=== PATIENT | male | born 1925 | race Caucasian/White ===

== ENCOUNTER 2016-09-17 03:58 | Inpatient (IN) | payer OTHER, MEDICARE ==
[~2016-09-17] VITALS: Ht 172.7 cm; Wt 73.6 kg
[2016-09-17 04:34] LABS: EOSINOPHIL (%) 1.2 % (0-5); EOSINOPHIL COUNT 0.1 K/uL (0-0.3); HEMATOCRIT 29.4 % (38.0-50.0); IMMATURE GRANULOCYTE (%) 0.5 % (0.0-0.7); IMMATURE GRANULOCYTE COUNT 0.1 K/uL; INSTRUMENT ABS NEUTROPHIL CT 7.8 K/uL; LYMPHOCYTE COUNT 0.9 K/uL (1.0-2.8); MCH 31.6 PG (29.0-34.0); MCV 102.1 FL (86-99); MEAN PLAT.VOLUME 10.2 uM^3 (9.0-12.4); MONOCYTE (%) 5.8 % (3-12); MONOCYTE COUNT 0.6 K/uL (0-0.8); NEUTROPHIL (%) 82.4 % (45-76); NEUTROPHIL COUNT 7.8 K/uL (1.8-6.4); PLATELET COUNT 181 K/uL (156-360); RBC DIS.WIDTH-CV 17.8 % (11.8-14.6); RED BLOOD COUNT 2.88 M/uL (4.00-5.50); WHITE BLOOD COUNT 9.5 K/uL (4.1-10.2)
[2016-09-17] MEDS ORDERED: FINASTERIDE5 MG PO (04:51)
[2016-09-17] MEDS ORDERED: FOLIC ACID1 MG PO (04:52)
[2016-09-17] MEDS ORDERED: FUROSEMIDE20 MG PO (04:53)
[2016-09-17] MEDS ORDERED: VITAMIN D31000 UNI2 PO (04:54)
[2016-09-17] MEDS ORDERED: MONTELUKAST SOD10 MG PO (04:54)
[2016-09-17] MEDS ORDERED: TAMSULOSIN HCL0.4 MG PO (04:55)
[2016-09-17] MEDS ORDERED: SIMVASTATIN80 MG PO (04:55)
[2016-09-17] MEDS ORDERED: GUAIFENESIN200 M2 PO (04:57)
[2016-09-17] MEDS ORDERED: ZYRTEC5 MG PO (04:58)
[2016-09-17 04:59] LABS: CHLORIDE 104 mEq/L (99-109); POTASSIUM 4.6 mEq/L (3.7-5.4); SODIUM 145 mEq/L (136-147)
[2016-09-17 05:01] LABS: GLUCOSE 117 mg/dL (70-99)
[2016-09-17 05:03] LABS: ANION GAP 15 MEQ/L (2-14); TOTAL BILIRUBIN 0.7 mg/dL (0.0-1.0)
[2016-09-17 05:05] LABS: ALKALINE PHOSPHATASE 102 IU/L (3-129); GFR ESTIMATE (CALCULATED) 38 mL/min/
[2016-09-17 05:06] LABS: UREA NITROGEN (BUN) 44 mg/dL (9-23)
[2016-09-17 05:10] LABS: TROP-I INTERPRETATION NEGATIVE; TROPONIN-I 0.17 ng/mL (0.0-0.30)
[2016-09-17 07:27] LABS: ADD MIUA? NO; BILIRUBIN NEGATIVE; BLOOD NEGATIVE; COLOR YELLOW ((YELLOW)); GLUCOSE (STRIP) NEGATIVE; KETONES NEGATIVE; LEUKOCYTES NEGATIVE; NITRITE NEGATIVE; PROTEIN (STRIP) 30; SPECIFIC GRAVITY 1.013 (1.000-1.030); UCUL ADDED? NO; UROBILINOGEN 0.2 MG/DL (0.2-1.0)
[2016-09-17] MEDS ORDERED: COUMADIN2.5 MG PO (08:15)
[2016-09-17] MEDS ORDERED: COUMADIN5 MG PO (08:16)
[2016-09-17 08:32] LABS: BASE EXCESS 3.3 mEq/L (-3 to +3); BICARBONATE 29.4 mEq/L (22-26); CARBOXY HGB 2.1 % (0-5); COMMENTS - BLOOD GASES AC+; DEVICE NASAL CANNULA; METHEMOGLOBIN 0.7 % (0-1.5); O2 FLOW 2.5 L/MIN; PCO2 52 mm Hg (35-45); PO2 120 mm Hg (80-100); SITE RR; TOTAL RESP RATE 20 resp/min; pH 7.36 (7.35-7.45)
[2016-09-17 08:58] LABS: INTER. NORMALIZED RATIO 2.4; PROTHROMBIN TIME 26.9 SEC (10.2-12.9)
[2016-09-17 09:53] VITALS: BP 123/77
[2016-09-17 12:07] VITALS: BP 114/56
[2016-09-17 13:21] LABS: TROP-I INTERPRETATION NEGATIVE; TROPONIN-I 0.15 ng/mL (0.0-0.30)
[2016-09-17 16:29] VITALS: BP 116/88
[2016-09-17 18:28] LABS: TROP-I INTERPRETATION NEGATIVE; TROPONIN-I 0.14 ng/mL (0.0-0.30)
[2016-09-17 19:33] VITALS: BP 134/59
[2016-09-18] VITALS (7 sets, daily range): BP systolic 77–109; BP diastolic 44–63
[2016-09-18 05:44] LABS: EOSINOPHIL (%) 0 % (0-5); HEMATOCRIT 26.9 % (38.0-50.0); IMMATURE GRANULOCYTE (%) 0.3 % (0.0-0.7); INSTRUMENT ABS NEUTROPHIL CT 2.9 K/uL; LYMPHOCYTE COUNT 0.3 K/uL (1.0-2.8); MCH 31.1 PG (29.0-34.0); MCHC 30.5 G/DL (30.0-36.0); MCV 101.9 FL (86-99); MEAN PLAT.VOLUME 10.6 uM^3 (9.0-12.4); MONOCYTE (%) 1.5 % (3-12); MONOCYTE COUNT 0.1 K/uL (0-0.8); NEUTROPHIL (%) 88.8 % (45-76); NEUTROPHIL COUNT 2.9 K/uL (1.8-6.4); PLATELET COUNT 155 K/uL (156-360); RBC DIS.WIDTH-CV 18.1 % (11.8-14.6); RBC DIS.WIDTH-SD 66.4 % (39-53); RED BLOOD COUNT 2.64 M/uL (4.00-5.50); WHITE BLOOD COUNT 3.3 K/uL (4.1-10.2)
[2016-09-18 05:55] LABS: INTER. NORMALIZED RATIO 2.5; PROTHROMBIN TIME 28.3 SEC (10.2-12.9)
[2016-09-18 06:11] LABS: ANION GAP 8 MEQ/L (2-14); CHLORIDE 102 MEQ/L (99-109); GFR ESTIMATE (CALCULATED) 41 mL/min/; GLUCOSE 140 mg/dL (70-99); POTASSIUM 5.3 MEQ/L (3.7-5.4); SAMPLE HEMOLYSIS CHECK 0; SAMPLE ICTERIC CHECK 0; SAMPLE LIPEMIA CHECK 0; SODIUM 141 MEQ/L (136-147); UREA NITROGEN (BUN) 48 mg/dL (9-23)
[2016-09-18 11:14] LABS: INTERNAL CONTROL VALID? YES
[2016-09-19] VITALS (7 sets, daily range): BP systolic 91–111; BP diastolic 53–60
[2016-09-19 06:07] LABS: INTER. NORMALIZED RATIO 2.5; PROTHROMBIN TIME 28.6 SEC (10.2-12.9)
[2016-09-19 08:45] LABS: HEMATOCRIT 26.7 % (38.0-50.0); MCH 31.9 PG (29.0-34.0); MCHC 31.1 G/DL (30.0-36.0); MCV 102.7 FL (86-99); MEAN PLAT.VOLUME 11.3 uM^3 (9.0-12.4); PLATELET COUNT 163 K/uL (156-360); RBC DIS.WIDTH-CV 18.2 % (11.8-14.6); RBC DIS.WIDTH-SD 67.4 % (39-53); WHITE BLOOD COUNT 6.7 K/uL (4.1-10.2)
[2016-09-19 08:58] LABS: ANION GAP 11 MEQ/L (2-14); CHLORIDE 102 MEQ/L (99-109); GFR ESTIMATE (CALCULATED) 34 mL/min/; GLUCOSE 135 mg/dL (70-99); POTASSIUM 5.3 MEQ/L (3.7-5.4); SAMPLE HEMOLYSIS CHECK 0; SAMPLE ICTERIC CHECK 0; SAMPLE LIPEMIA CHECK 0; SODIUM 140 MEQ/L (136-147); UREA NITROGEN (BUN) 64 mg/dL (9-23)
[2016-09-19] MEDS ORDERED: SYMBICORT60 INHALAT IH (11:41)
[2016-09-19] MEDS ORDERED: DELTASONE20 M1 PO (11:42)
[2016-09-19] MEDS ORDERED: IPRATROPIUM BRO15 ML BOTH NARES (11:44)
[2016-09-19] MEDS ORDERED: PROVENTIL,2.5 MG/3 M IH (11:45)
[2016-09-19] MEDS ORDERED: IPRATR-ALBUTEROL3 ML IH (11:46)
[2016-09-20 03:52] VITALS: BP 105/56
[2016-09-20 07:07] LABS: HEMATOCRIT 27.3 % (38.0-50.0); MCH 31.2 PG (29.0-34.0); MCHC 30.4 G/DL (30.0-36.0); MCV 102.6 FL (86-99); MEAN PLAT.VOLUME 10.9 uM^3 (9.0-12.4); PLATELET COUNT 165 K/uL (156-360); RBC DIS.WIDTH-SD 67.4 % (39-53); RED BLOOD COUNT 2.66 M/uL (4.00-5.50); WHITE BLOOD COUNT 5.4 K/uL (4.1-10.2)
[2016-09-20 07:11] LABS: INTER. NORMALIZED RATIO 2.8; PROTHROMBIN TIME 31.6 SEC (10.2-12.9)
[2016-09-20 07:26] LABS: ANION GAP 6 MEQ/L (2-14); CHLORIDE 102 MEQ/L (99-109); GFR ESTIMATE (CALCULATED) 27 mL/min/; GLUCOSE 134 mg/dL (70-99); POTASSIUM 5.7 MEQ/L (3.7-5.4); SAMPLE HEMOLYSIS CHECK 0; SAMPLE ICTERIC CHECK 0; SAMPLE LIPEMIA CHECK 0; SODIUM 140 MEQ/L (136-147); UREA NITROGEN (BUN) 69 mg/dL (9-23)
[2016-09-20 07:52] VITALS: BP 112/68
[2016-09-20 11:19] VITALS: BP 117/58
[2016-09-20 16:00] VITALS: BP 91/59
[2016-09-20 18:12] LABS: ANION GAP 11 MEQ/L (2-14); CHLORIDE 103 MEQ/L (99-109); GFR ESTIMATE (CALCULATED) 30 mL/min/; GLUCOSE 104 mg/dL (70-99); POTASSIUM 5.3 MEQ/L (3.7-5.4); SAMPLE HEMOLYSIS CHECK 0; SAMPLE ICTERIC CHECK 0; SAMPLE LIPEMIA CHECK 0; SODIUM 143 MEQ/L (136-147); UREA NITROGEN (BUN) 69 mg/dL (9-23)
[2016-09-20 20:03] VITALS: BP 137/51
[2016-09-20 23:46] VITALS: BP 85/52
[2016-09-21 00:29] LABS: ADD MIUA? YES; BILIRUBIN NEGATIVE; BLOOD SMALL; COLOR YELLOW ((YELLOW)); GLUCOSE (STRIP) NEGATIVE; KETONES NEGATIVE; LEUKOCYTES TRACE; NITRITE NEGATIVE; PROTEIN (STRIP) 30; SPECIFIC GRAVITY 1.012 (1.000-1.030); UROBILINOGEN 0.2 MG/DL (0.2-1.0)
[2016-09-21 00:37] LABS: BACTERIA RARE /HPF; EPITHELIAL CELLS NONE SEEN /HPF; HYALINE CASTS 0-5 /LPF; MUCUS TRACE /LPF; RED BLOOD CELLS 0-5 /HPF (0-5); WHITE BLOOD CELLS 0-5 /HPF (0-5)
[2016-09-21 03:29] LABS: UR CREATININE CONCENTRATION 86.6 MG/DL
[2016-09-21 04:10] VITALS: BP 108/55
[2016-09-21 05:53] LABS: EOSINOPHIL (%) 0 % (0-5); HEMATOCRIT 27.1 % (38.0-50.0); IMMATURE GRANULOCYTE (%) 0.5 % (0.0-0.7); INSTRUMENT ABS NEUTROPHIL CT 5.6 K/uL; LYMPHOCYTE COUNT 0.4 K/uL (1.0-2.8); MCH 31.8 PG (29.0-34.0); MCV 102.7 FL (86-99); MONOCYTE (%) 5.7 % (3-12); MONOCYTE COUNT 0.4 K/uL (0-0.8); NEUTROPHIL COUNT 5.6 K/uL (1.8-6.4); PLATELET COUNT 161 K/uL (156-360); RBC DIS.WIDTH-CV 18.3 % (11.8-14.6); RED BLOOD COUNT 2.64 M/uL (4.00-5.50); WHITE BLOOD COUNT 6.4 K/uL (4.1-10.2)
[2016-09-21 06:00] LABS: INTER. NORMALIZED RATIO 3.2; PROTHROMBIN TIME 36.4 SEC (10.2-12.9)
[2016-09-21 06:23] LABS: ANION GAP 8 MEQ/L (2-14); CHLORIDE 101 MEQ/L (99-109); GFR ESTIMATE (CALCULATED) 32 mL/min/; GLUCOSE 116 mg/dL (70-99); POTASSIUM 4.7 MEQ/L (3.7-5.4); SAMPLE HEMOLYSIS CHECK 0; SAMPLE ICTERIC CHECK 0; SAMPLE LIPEMIA CHECK 0; SODIUM 141 MEQ/L (136-147); UREA NITROGEN (BUN) 75 mg/dL (9-23); URIC ACID 10.9 mg/dL (3.1-9.2)
[2016-09-21 07:41] VITALS: BP 111/65
[2016-09-21 11:22] VITALS: BP 95/50
[2016-09-21 15:43] VITALS: BP 113/65
[2016-09-21 19:52] VITALS: BP 104/58
[2016-09-22 00:14] VITALS: BP 117/59
[2016-09-22 03:48] VITALS: BP 108/54
[2016-09-22 06:29] LABS: INTER. NORMALIZED RATIO 3.4; PROTHROMBIN TIME 39.8 SEC (10.2-12.9)
[2016-09-22 06:37] LABS: ANION GAP 8 MEQ/L (2-14); CHLORIDE 103 MEQ/L (99-109); GFR ESTIMATE (CALCULATED) 34 mL/min/; GLUCOSE 123 mg/dL (70-99); POTASSIUM 4.7 MEQ/L (3.7-5.4); SAMPLE HEMOLYSIS CHECK 0; SAMPLE ICTERIC CHECK 0; SAMPLE LIPEMIA CHECK 0; SODIUM 144 MEQ/L (136-147); UREA NITROGEN (BUN) 75 mg/dL (9-23)
[2016-09-22 08:32] VITALS: BP 107/66
[2016-09-22] MEDS ORDERED: LOPRESSOR25 MG PO (09:20)
[2016-09-22] MEDS ORDERED: COUMADIN5 MG PO (12:17)
== END 2016-09-22 14:01 | DRG 190 ==
LOC: EME → EDBD 03:58 → EDOF 07:38 → 5SOUTH 07:38 → ENPENDDIS 09-22 → 5SOUTH 09-22 14:01
PROVIDERS: Emergency Medicine; Hospitalist; Internal Medicine; Internal Medicine Nephrology; Nurse Practitioner Adult Health
DX: J44.0 Chronic obstructive pulmonary disease with (acute) lower respiratory infection (principal); J15.9 Unspecified bacterial pneumonia; I50.23 Acute on chronic systolic (congestive) heart failure; J96.21 Acute and chronic respiratory failure with hypoxia; N17.9 Acute kidney failure, unspecified; I13.0 Hypertensive heart and chronic kidney disease with heart failure and stage 1 through stage 4 chronic kidney disease, or unspecified chronic kidney disease; J90 Pleural effusion, not elsewhere classified; I47.2 Ventricular tachycardia; I47.1 Supraventricular tachycardia; Z66 Do not resuscitate; B02.8 Zoster with other complications; J44.1 Chronic obstructive pulmonary disease with (acute) exacerbation; I49.3 Ventricular premature depolarization; N18.3 Chronic kidney disease, stage 3 (moderate); N40.0 Benign prostatic hyperplasia without lower urinary tract symptoms; J84.10 Pulmonary fibrosis, unspecified; D53.9 Nutritional anemia, unspecified; E87.5 Hyperkalemia; I25.10 Atherosclerotic heart disease of native coronary artery without angina pectoris; T50.2X5A Adverse effect of carbonic-anhydrase inhibitors, benzothiadiazides and other diuretics, initial encounter; I45.10 Unspecified right bundle-branch block; Z79.01 Long term (current) use of anticoagulants; Z87.01 Personal history of pneumonia (recurrent); Z99.81 Dependence on supplemental oxygen; Z95.2 Presence of prosthetic heart valve; Z87.891 Personal history of nicotine dependence; Z79.52 Long term (current) use of systemic steroids; Z82.49 Family history of ischemic heart disease and other diseases of the circulatory system
CPT/HCPCS: 36600; 71010; 76770; 80048; 80048 91; 80053; 81003; 82570; 82607; 82746; 82803; 83605; 83735; 83880; 84100; 84156; 84484; 84550; 85025; 85027; 85610; 87040; 87070; 87205; 87449; 93005; 93306; 94640; 94640 76; 94667; 94668; 94760; 94799; 99202; 99281; 99285; J0456; J0692; J0696; J1815; J1940; J2930; J7050; J7512